=== PATIENT | female | born 1960 ===

== ENCOUNTER 2018-10-18 09:25 | Outpatient (CLI) | payer OTHER ==
[~2018-10-18] VITALS: Ht 152.4 cm; Wt 122.5 kg
== END 2018-10-18 09:45 | disposition home or self-care (01) ==
LOC: OFIC 805 09:25
DX: R42 Dizziness and giddiness (principal); H60.8X3 Other otitis externa, bilateral; H90.3 Sensorineural hearing loss, bilateral